=== PATIENT | female | born 1965 | race Caucasian/White ===

== ENCOUNTER 2020-10-23 12:25 | Outpatient (NON) | payer OTHER, SELFPAY ==
[2020-10-23 21:33] LABS: SARS-CoV-2 RNA PCR Positive
== END 2020-10-23 12:26 ==
PROVIDERS: PCP Family Medicine; Visit Provider Nurse Practitioner Family
DX: U07.1 COVID-19 (principal)
CPT/HCPCS: 87635; C9803; U0003

== ENCOUNTER 2022-10-07 06:13 | Emergency (ER) | payer BC, OTHER, SELFPAY ==
--- NOTE | ~2022-10-07 | XR_ITS ---
EXAMINATION: XR ankle LT min 3V DATE: 10/07/2022 07:10 INDICATION: Left ankle injury. TECHNIQUE: 3 views of left ankle were obtained. COMPARISON: None. FINDINGS: Bone alignment is normal. No fracture. There is mild osteoarthritis of talonavicular joint. There is lateral ankle soft tissue swelling. IMPRESSION: 1. Mild osteoarthritis of talonavicular joint. Reviewed, dictated and finalized at location A. LAT[facility] OPERATOR
[2022-10-07 06:14] VITALS: BP 148/68; PULSE 83; RESP 18; TEMP 36.6; O2SAT 99
--- NOTE | 2022-10-07 06:49 | ED.GENADULT ---
HPI - General Adult General Chief complaint: Extremity Injury, Lower Stated complaint: left ankle injury Time Seen by Provider: 10/07/22 06:21 Source: RN notes reviewed History of Present Illness HPI narrative: Patient presents emergency room from home for left ankle pain. Patient states that just prior to arrival she was working out and there is a small her later jumping over states she jumped over the [place] and twisted her left ankle she states since that time she had pain over the left lateral ankle she denies any other trauma or injury states she has not had no numbness or tingling Related Data Home Medications Medication Instructions Recorded Confirmed magnesium oxide 400 mg PO DAILY 05/19/20 05/18/21 carvedilol 3.125 mg tablet mg 10/07/22 Allergies Allergy/AdvReac Type Severity Reaction Status Date / Time No Known Allergies Allergy Verified 10/07/22 06:21 Review of Systems Review of Systems: Gen.: Denies fevers or chills Musculoskeletal: See HPI Neuro: Denies numbness, tingling, weakness Skin: Denies rash Endo: Denies DM PMFSH Past Medical History Medical History BMI 26.0-26.9,adult BMI 27.0-27.9,adult Dyspepsia Emotional lability Hypothyroidism Nausea Screening, lipid Family History Family History Mother Hypertension Cerebrovascular accident Family history of coronary artery disease Father Family history of lung cancer Family history of malignant neoplasm of urinary bladder Social History Social History Tobacco type: cigarettes Alcohol intake: never Exam Narrative: APPEARANCE: No acute distress, nontoxic, resting in bed Eyes: EOMI HEENT: Normocephalic, atraumatic, RESPIRATORY: No respiratory distress MUSCULOSKELETAl: Tender to palpation over left lateral malleolus with swelling present no tenderness over the medial or anterior ankle no tenderness of the proximal fibula or the base of the fifth metatarsal, dorsalis pedis pulse 2+ neurovascular intact NEURO: Awake and alert. Following commands, speech normal, no focal deficits SKIN:: Warm, dry. Normal Color no rash or lesions Course Vital Signs Vital signs: Vital Signs Temperature 97.9 F 10/07/22 06:14 Pulse Rate 83 10/07/22 06:14 Respiratory Rate 18 10/07/22 06:14 Blood Pressure 148/68 H 10/07/22 06:14 Pulse Oximetry 99 10/07/22 06:14 Oxygen Delivery Room Air 10/07/22 06:14 Temperature 97.9 F 10/07/22 06:14 Pulse Rate 83 10/07/22 06:14 Respiratory Rate 18 10/07/22 06:14 Blood Pressure 148/68 H 10/07/22 06:14 Pulse Oximetry 99 10/07/22 06:14 Oxygen Delivery Room Air 10/07/22 06:14 Medical Decision Making Vital Signs Vital Signs: Vital Signs Temperature 97.9 F 10/07/22 06:14 Pulse Rate 83 10/07/22 06:14 Respiratory Rate 18 10/07/22 06:14 Blood Pressure 148/68 H 10/07/22 06:14 Pulse Oximetry 99 10/07/22 06:14 Oxygen Delivery Room Air 10/07/22 06:14 Temperature 97.9 F 10/07/22 06:14 Pulse Rate 83 10/07/22 06:14 Respiratory Rate 18 10/07/22 06:14 Blood Pressure 148/68 H 10/07/22 06:14 Pulse Oximetry 99 10/07/22 06:14 Oxygen Delivery Room Air 10/07/22 06:14 Imaging Data Radiologist's impression: ITS Impressions Ankle X-Ray 10/07/22 07:12 IMPRESSION: 1. Mild osteoarthritis of talonavicular joint. Discharge Plan Discharge Clinical Impression: Left ankle sprain Patient Disposition: Home, Self-Care Condition: Stable Instructions: Antibiotic Form, Ankle Sprain (ED), P.R.I.C.E. Treatment (ED) Additional Instructions: Return for increasing pain numbness or tingling in extremities or any other symptoms of concern Prescriptions: New ibuprofen 600 mg tablet 600 mg PO TID PRN (Reason: pain) Qty: 14 0RF No Action alecia
== END 2022-10-07 07:40 | disposition home or self-care (01) ==
PROVIDERS: Emergency Provider Emergency Medicine; PCP Family Medicine
DX: S93.402A Sprain of unspecified ligament of left ankle, initial encounter (principal); E03.9 Hypothyroidism, unspecified; X50.0XXA Overexertion from strenuous movement or load, initial encounter
CPT/HCPCS: 73610; 99283